=== PATIENT | male | born 1950 | race Caucasian/White ===

== ENCOUNTER → 2019-05-22 | Outpatient (CLI) | payer OTHER ==
--- NOTE | 2019-05-22 14:47 | CT ---
EXAMINATION TYPE: CT lower extremity LT wo con DATE OF EXAM: 05/22/2019 COMPARISON: NONE. HISTORY: Subtalar joint dislocation, left ankle arthrosis, left ankle pain.S93.315D M19.[address] DLP: 287 mGycm Automated exposure control for dose reduction was used. FINDINGS: Exam suboptimal due to inability to perform normal anatomical positioning. Technologist also does not provide true reconstructed axial, coronal, and sagittal planes. Demineralization is present. Nonspecific lucent lesions are scattered throughout the hindfoot favorin g subchondral cysts given distribution. One is noted anteriorly in the distal tibial epiphysis. Some spurring or bony formation along the lateral malleolus laterally and posteriorly is present. Ankle mo rtise symmetry is preserved. There is marked narrowing and sclerosis with subchondral cystic change i nvolving the subtalar joint. There is narrowing and subchondral cystic change involving the calcaneoc uboid articulation. Moderate to severe narrowing with sclerosis and subchondral cystic change talonav icular joint is present. Lisfranc joints are maintained with some narrowing and subchondral cystic change. More prominent remi neralization at this level. Old fracture deformity of the mid to distal fifth metatarsal with extensi ve callus formation. Flexion of the toes makes evaluation at this level slightly suboptimal. Moderate to severe diffuse subcutaneous edema involving the ankle and hindfoot. Severe tibiotalar hanna nt effusion. IMPRESSION: SUBOPTIMAL STUDY DETAILED ABOVE.
== END | disposition home or self-care (01) ==
LOC: RADCTMAIN 12:41
DX: M89.8X6 Other specified disorders of bone, lower leg (principal); M19.272 Secondary osteoarthritis, left ankle and foot